=== PATIENT | female | born 1960 | race Caucasian/White ===

== ENCOUNTER → 2016-10-29 | Outpatient (CLI) | payer OTHER ==
[~2016-10-29] MED LIST: BACITRACIN15 GM OINT EXT; BACTRIM DS TABL1 TA1 PO; DARVOCET-N 1001 TA1 PO; SYNTHROID PO
--- NOTE | ~2016-10-29 | US37 ---
[facility] A Service [facility] RADIOLOGY TEXT RESULTS PATIENT: HORACIO GUILLEN LOCATION: CNIV : 60 UNIT #: [id number] AGE: [address]: Heidy Coburn SEX: F ORDER DR: [id number] [facility] [address] [place], [place] [address] [id number] O MR#: [id number] Acc #: [id number] NAME: HORACIO GUILLEN : 1960 SEX: F STUDY DATE/TIME: 10/29/2016 14:00 UNIT: CNIV ROOM: STUDY DESCRIPTION: US Carotid W/Doppler Bilateral Attending Physician: Heidy Coburn A.P.R.N. Referring Physician: Heidy Coburn A.P.R.N. Ordering Physician: Heidy Coburn A.P.R.N. Primary Care Physician: Primary Care Physician No MEDICAL IMAGING REPORT This report is preliminary unless electronic signature is present EXAM Bilateral carotid duplex HISTORY Carotid stenosis FINDINGS Duplex imaging of the carotid arteries was performed. The right common carotid artery is patent. Mild plaque is seen in the right internal and external carotid arteries. Velocity in the right common carotid artery is 103, internal is 142 proximally, 138 mid portion and 156 distally. There is no significant plaque to explain increased velocities, but there is turbulence seen. Velocity in the external carotid artery is 158 cm/second. Right ICA:CCA is 1.5. On the left side, plaque is seen in the left internal and external carotid arteries. Velocity in the left common carotid is 94, internal is 162 proximally, 197 mid portion and 104 distally. Externally is 224 cm/second. Left ICA:CCA is 2.1. Antegrade flow is seen in the right and left vertebral arteries. IMPRESSION Plaque with 50-69% stenosis is seen in the internal carotid arteries bilaterally. Antegrade flow is seen in the right and left vertebral arteries. Dictated by..Mateo Faye M.D. [facility] A Service of [facility] RADIOLOGY TEXT RESULTS PATIENT: HORACIO GUILLEN LOCATION: CNIV : 60 UNIT #: [id number] AGE: [address]: Heidy Coburn SEX: F ORDER DR: THIS IS AN ELECTRONICALLY VERIFIED REPORT Manuel Faye M.D. at 10/30/2016 9:44 AM SA/nisha TD: 10/29/2016 18:24 JOB #: [id number] MEDICAL IMAGING REPORT Page 1 of 1 COPY
--- NOTE | ~2016-10-29 | US135 ---
[facility] A Service of [facility] RADIOLOGY TEXT RESULTS PATIENT: HORACIO GUILLEN LOCATION: CNIV : 60 UNIT #: [id number] AGE: [address]: Heidy Coburn SEX: F ORDER DR: [id number] [facility] [address] [place], [place] [address] [id number] O MR#: [id number] Acc #: [id number] NAME: HORACIO GUILLEN : 1960 SEX: F STUDY DATE/TIME: 10/29/2016 13:08 UNIT: CNIV ROOM: STUDY DESCRIPTION: US U/L Ext Art Study Comp Neymar Attending Physician: Heidy Coburn A.P.R.N. Referring Physician: Heidy Coburn A.P.R.N. Ordering Physician: Heidy Coburn A.P.R.N. Primary Care Physician: No Primary Care Physician MEDICAL IMAGING REPORT This report is preliminary unless electronic signature is present EXAM Lower extremity arterial studies 10/29/2016 HISTORY PAD. FINDINGS Pulse volume recordings are normal at the thigh levels bilaterally and dampened at the calf levels bilaterally. Right brachial pressure is not done and left brachial pressure is 121. On the right side high thigh pressure is 121, low thigh 117, calf pressure 106, dorsalis pedis 74, posterior tibial 95, great toe is 50, for a right ankle to brachial index of 0.79. On the left side high thigh is 143, low thigh 145, calf pressure 103, posterior tibial 123, dorsalis pedis 110, great toe is 80 for a left ankle to brachial index of 1.02. IMPRESSION 1. Mild peripheral vascular disease is seen in the right lower extremity with ankle to brachial index of 0.79. 2. Normal perfusion is seen in the left lower extremity with ANALILIA of 1.02. Dictated by... Manuel Faye M.D. THIS IS AN ELECTRONICALLY VERIFIED REPORT Manuel Faye M.D. at 10/30/2016 9:44 AM Ezequiel TD: 10/29/2016 18:25 JOB #: [id number] [facility] A Service of [facility] RADIOLOGY TEXT RESULTS PATIENT: HORACIO GUILLEN LOCATION: CNIV : 60 UNIT #: [id number] AGE: [address]: Heidy Coburn SEX: F ORDER DR: MEDICAL IMAGING REPORT Page 1 of 1 COPY
== END | disposition home or self-care (01) ==
LOC: CNIV 12:48
DX: I65.23 Occlusion and stenosis of bilateral carotid arteries (principal); I73.9 Peripheral vascular disease, unspecified
CPT/HCPCS: 93880; 93923